=== PATIENT | male | born 1965 | race African-American/Black ===

== ENCOUNTER 2018-02-10 23:26 | Emergency (ER) | payer OTHER ==
[2018-02-11] MEDS ORDERED: HYDROcodone/APAP 7.5-325MG 1 EACH TAB PO STA (00:07)
[2018-02-11] MEDS ORDERED: LISINOPRIL-HCTZ 20-12.5 MG 1 EACH TAB PO STA (00:08)
[2018-02-11 00:38] LABS: Appearance,Urine Clear (Clear); Bilirubin,Urine Negative (Negative); Blood,Urine Negative (Negative); Color,Urine Light Yellow; Glucose,Urine (UA) Negative (Negative); Ketones,Urine Negative (Negative); Leukocyte Esterase,Urine Negative (Negative); Nitrite,Urine Negative (Negative); Protein,Urine Negative (Negative)
[2018-02-11] MEDS ORDERED: SODIUM CHLORIDE 0.9% 1,000 ML IV SCH (01:15)
[2018-02-11] MEDS ORDERED: RX INFO: IV CONTRAST WAS GIVEN 1 EACH MISC MISCELLANE PRN (01:16)
--- NOTE | 2018-02-11 01:16 | ED ---
General Adult HPI - General Source: patient Mode of arrival: wheelchair Limitations: no limitations <Rehan Dumont - Last Filed: 02/11/18 01:00> <Adis Salas - Last Filed: 02/11/18 04:20> - General Chief complaint: Back Pain/Injury Stated complaint: Back/Rib Pain Time Seen by Provider: 02/10/18 23:57 - History of Present Illness Initial comments: Chief complaint history of present illness this is a 52-year-old black male with his . He is here because of having on going discomfort to the area between his thoracic spine and left scapula. Radiates from the mid scapula downward toward the left flank area. No sweats nausea or vomiting. Past history of hypertension and not on any medications at this time. (Rehan Dumont) - Related Data Previous Rx's Medication Instructions Recorded Ibuprofen [Motrin] 600 mg PO Q8HR PRN #20 tab 02/11/18 Lisinopril-Hctz 20-12.5 mg 1 tab PO DAILY #20 tab 02/11/18 [Zestoretic 20-12.5] Methocarbamol [Robaxin-750] 750 mg PO TID PRN #30 tablet 02/11/18 Allergies Allergy/AdvReac Type Severity Reaction Status Date / Time No Known Allergies Allergy Verified 02/10/18 23:39 Review of Systems ROS Other: All systems not noted in ROS Statement are negative. <Rehan Dumont - Last Filed: 02/11/18 01:00> ROS Other: All systems not noted in ROS Statement are negative. <Adis Salas - Last Filed: 02/11/18 04:20> ROS Statement: Those systems with pertinent positive or pertinent negative responses have been documented in the HPI. review of systems. No headache or visual acuity changes no anterior chest wall pain. He has pain as noted above between the thoracic spine and the scapula on the left side. Radiates down the flank area. He states she's more comfortable laying on his left side than his right. Movement does increase the pain sometimes. No direct injury. No neuro deficits. No nausea no vomiting. Systems reviewed.Past medical problems hypertension no medications for at least the past 3 days. Surgeries hemorrhoids. Family history hypertension. Patient has no ALLERGIES. He does smoke strongly encouraged to stop denies alcohol use. (Rehan Dumont) Past Medical History Past Medical History: No Reported History Additional Past Medical History / Comment(s): hemmorhoids. History of Any Multi-Drug Resistant Organisms: None Reported Additional Past Surgical History / Comment(s): hemmorhoids. Past Psychological History: No Psychological Hx Reported Smoking Status: Current every day smoker Past Alcohol Use History: None Reported Past Drug Use History: None Reported <Rehan Dumont - Last Filed: 02/11/18 01:00> General Exam Limitations: no limitations <Rehan Dumont - Last Filed: 02/11/18 01:00> <Adis Salas - Last Filed: 02/11/18 04:20> - General Exam Comments Initial Comments: General: The patient is awake and alert, complaining of discomfort increasing over the past several days to the area between his thoracic spine and scapula on the left. Raiding downward. Vital signs temp 98.4 pulse 68 respiratory rate 16 pulse ox 99% room air blood pressure 170/97. The patient's not been taking his blood pressure medication lately. He states he ran out. Eye: Pupils are equal, round and reactive to light, extra-ocular movements are intact ; there is normal conjunctiva bilaterally. No signs of icterus. Ears, nose, mouth and throat: There are moist mucous membranes Neck: The neck is supple, there is no tenderness Cardiovascular: There is a regular rate and rhythm. No murmur, rub or gallop is appreciated. Respiratory: Lungs are clear to auscultation, respirations are non-labored, breath sounds are equal. No wheezes, stridor, rales, or rhonchi. Gastrointestinal: abdomen nontender Back: pain ongoing for a period of time between his left scapula and thoracic spine radiates down the left flank area. Musculoskeletal: no pain or problems with upper or lower extremities. neuro intact. Skin is warm and dry and no rashes or lesions are noted. (Rehan Dumont) Vital Signs 02/10/18 02/11/18 02/11/18 23:35 02:41 03:51 Temperature 98.4 F 97 F L 98.2 F Pulse Rate 68 56 L 104 H Respiratory 16 20 20 Rate Blood Pressure 170/97 151/101 141/90 O2 Sat by Pulse 99 99 99 Oximetry Medical Decision Making <Rehan Dumont - Last Filed: 02/11/18 01:00> - Lab Data Result diagrams: 02/11/18 01:21 02/11/18 01:21 <Adis Salas - Last Filed: 02/11/18 04:20> - Medical Decision Making medical decision making; this is a 52-year-old male with elevated blood pressure. Complaining of discomfort from his thoracic spine to the left scapular region. Urine was clean no signs of blood or infection. S x-ray was done and slightly rotated. No evidence of any acute rib fractures. Heart size mildly enlarged. No infiltrates appreciated. Waiting for radiologist to evaluate the patient concerning possible slightly widened mediastinum versus rotation. Due to the patient's complaint he will have a CT of the thoracic and abdominal aorta. after the lab work and kidney function study has been performed. Final disposition by Dr. Salas (Rehan Dumont) The patient's CT is negative for dissection/aneurysm. I did give additional dose of Valium as a muscle relaxant. Discussed appropriate further care and follow-up as well as reinforcing that he needs to see about better blood pressure control. Discussed return parameters. (Adis Salas) - Lab Data Lab Results 02/11/18 02/11/18 02/11/18 Range/Units 00:28 01:21 01:21 WBC 7.6 (3.8-10.6) k/uL RBC 5.34 (4.30-5.90) m/uL Hgb 14.0 (13.0-17.5) gm/dL Hct 41.3 (39.0-53.0) % MCV 77.3 L (80.0-100.0) fL MCH 26.3 (25.0-35.0) pg MCHC 34.0 (31.0-37.0) g/dL RDW 15.0 (11.5-15.5) % Plt Count 159 (150-450) k/uL Neutrophils % 44 % Lymphocytes % 45 % Monocytes % 7 % Eosinophils % 2 % Basophils % 0 % Neutrophils # 3.3 (1.3-7.7) k/uL Lymphocytes # 3.4 (1.0-4.8) k/uL Monocytes # 0.5 (0-1.0) k/uL Eosinophils # 0.1 (0-0.7) k/uL Basophils # 0.0 (0-0.2) k/uL Microcytosis Slight Sodium 139 (137-145) mmol/L Potassium 4.1 (3.5-5.1) mmol/L Chloride 107 (98-107) mmol/L Carbon Dioxide 26 (22-30) mmol/L Anion Gap 6 mmol/L BUN 17 (9-20) mg/dL Creatinine 1.00 (0.66-1.25) mg/dL Est GFR (CKD-EPI)AfAm >90 (>60 ml/min/1.73 sqM) Est GFR (CKD-EPI)NonAf 87 (>60 ml/min/1.73 sqM) Glucose 107 H (74-99) mg/dL Calcium 9.9 (8.4-10.2) mg/dL Urine Color Light Yellow Urine Appearance Clear (Clear) Urine pH 6.0 (5.0-8.0) Ur Specific [place] 1.010 (1.001-1.035) Urine Protein Negative (Negative) Urine Glucose (UA) Negative (Negative) Urine Ketones Negative (Negative) Urine Blood Negative (Negative) Urine Nitrite Negative (Negative) Urine Bilirubin Negative (Negative) Urine Urobilinogen 2.0 (<2.0) mg/dL Ur Leukocyte Esterase Negative (Negative) Disposition <Rehan Dumont - Last Filed: 02/11/18 01:00> <Adis Salas - Last Filed: 02/11/18 04:20> Clinical Impression: Mid back pain, Hypertension Disposition: HOME SELF-CARE Condition: Good Instructions: Chronic Back Pain (ED), Hypertension (ED) Prescriptions: Ibuprofen [Motrin] 600 mg PO Q8HR PRN #20 tab PRN Reason: Pain Lisinopril-Hctz 20-12.5 mg [Zestoretic 20-12.5] 1 tab PO DAILY #20 tab Methocarbamol [Robaxin-750] 750 mg PO TID PRN #30 tablet PRN Reason: pain Referrals: Nonstaff,Physician [Primary Care Provider] - 1-2 days
--- NOTE | 2018-02-11 01:20 | XR ---
EXAMINATION TYPE: XR ribs LT w pa chest xray DATE OF EXAM: 02/11/2018 COMPARISON: NONE HISTORY: Rib pain TECHNIQUE: 5 views FINDINGS: Heart is normal. Lungs are clear of consolidation. Thoracic aorta is atheromatous. There is no pleural effusion. I see no pleural effusion or pneumothorax. The left ribs appear intact. IMPRESSION: No active cardiopulmonary disease. Normal left ribs.
[2018-02-11 01:31] LABS: Basophils % (A) 0 %; Eosinophils # (A) 0.1 k/uL (0-0.7); Eosinophils % (A) 2 %; HCT 41.3 % (39.0-53.0); Lymphocytes # (A) 3.4 k/uL (1.0-4.8); Lymphocytes % (A) 45 %; MCH 26.3 pg (25.0-35.0); MCV 77.3 fL (80.0-100.0); Mean Platelet Volume 7.1; Microcytosis Slight; Monocytes # (A) 0.5 k/uL (0-1.0); Monocytes % (A) 7 %; Neutrophils # (A) 3.3 k/uL (1.3-7.7); Neutrophils % (A) 44 %; Platelet Count 159 k/uL (150-450); RBC 5.34 m/uL (4.30-5.90); WBC 7.6 k/uL (3.8-10.6)
[2018-02-11 01:40] LABS: Anion Gap 6 mmol/L; Blood Urea Nitrogen 17 mg/dL (9-20); Calcium 9.9 mg/dL (8.4-10.2); Carbon Dioxide 26 mmol/L (22-30); Chloride 107 mmol/L (98-107); Glucose 107 mg/dL (74-99); Potassium 4.1 mmol/L (3.5-5.1); Sodium 139 mmol/L (137-145)
[2018-02-11 02:43] VITALS: RESP 20
[2018-02-11] MEDS ORDERED: DIAZEPAM 5 MG/ML 2 ML INJ IVP STA (03:51)
[2018-02-11 04:39] VITALS: BP 121/80; PULSE 56; TEMP 97.9
--- NOTE | 2018-02-11 04:44 | CT ---
EXAMINATION TYPE: CT angio thoracic/abd aorta DATE OF EXAM: 02/11/2018 COMPARISON: NONE HISTORY: left lower rib pain CT DLP: 1049.40 mGycm. Automated Exposure Control for Dose Reduction was Utilized. CONTRAST: CT scan of the thorax, abdomen and pelvis is performed with IV Contrast, patient injected with 100 mL of Omnipaque 350. FINDINGS: There are 3-D post processed images. The lungs are clear of infiltrate. There is normal contrast opacification of the thoracic aorta. Asce nding aorta measures 3.7 cm. There is no sign of dissection. There is no mediastinal adenopathy. Ther e are no hilar masses. There is no pericardial effusion. There is no pleural effusion. There is no ev idence of a pulmonary mass. Liver spleen pancreas appear normal. Bile ducts are not dilated. Gallbladder is contracted. There is normal contrast opacification of the abdominal aorta there is mild atheromatous change. I se e no evidence of hemodynamically significant stenosis. There is some plaque at the right common iliac artery bifurcation. There is patency of the celiac artery and superior mesenteric artery. There is p atency of the renal arteries. There is no sign of aortic aneurysm or dissection. There is no retroper itoneal adenopathy. There is no ascites. There is mild wall thickening involving the proximal small b owel. Large bowel appears normal. Visualized distal ileum has normal appearance. CONCLUSION: There is mild atherosclerotic vascular disease. No evidence of aortic aneurysm or dissection. No sign of hemodynamically significant stenosis. There is some nonspecific wall thickening in the proximal jejunum that could relate to enteritis.
== END 2018-02-11 04:40 | disposition home or self-care (01) ==
LOC: EC 23:26
DX: I10 Essential (primary) hypertension (principal); M54.9 Dorsalgia, unspecified; F17.200 Nicotine dependence, unspecified, uncomplicated
CPT/HCPCS: 99284; 96374; 36415; 80048; 85025; 81003; 87086; 71101; 75635; 71275; J3360; Q9967